=== PATIENT | female | born 1940 | race Caucasian/White ===

== ENCOUNTER → 2016-10-06 | Outpatient (CLI) | payer OTHER ==
[~2016-10-06] MED LIST: AMARYL PO; ASPIRIN81 M2 PO; CALTRATE 600 W-1 TAB PO; GLYNASE PO; LISINOPRIL10 MG PO; LISINOPRIL5 MG PO; LOPID600 MG PO; LOPRESSOR PO; LOPRESSOR100 MG PO; METFORMIN HCL500 M1 PO; MICRONASE5 M1 PO; MULTI VITAMIN1 EACH PO; TUSSIONEX PENN473 ML PO; VICODIN 5/1 TAB 5/50 PO; VITAMIN D1000 UNIT PO; VITAMIN D400 UNI2 PO; ZITHROMAX PO
--- NOTE | ~2016-10-06 | MY29 ---
[facility] A Service of [facility] RADIOLOGY TEXT RESULTS PATIENT: TWAN ACKERMAN LOCATION: [facility] : 42 UNIT #: [id number] AGE: [address]: Julito Saunders MD SEX: F ORDER DR: [id number] [facility] [address] [place], [place] [address] [id number] MR#: [id number] Acc #: [id number] NAME: TWAN ACKERMAN : 1940 SEX: F STUDY DATE/TIME: 10/06/2016 10:33 UNIT: [facility] ROOM: STUDY DESCRIPTION: MY JO SCREENING W/ CAD BILAT Attending Physician: Julito Saunders M.D. Referring Physician: Julito Saunders M.D. Ordering Physician: Julito Saunders M.D. Primary Care Physician: Julito Saunders M.D. MEDICAL IMAGING REPORT This report is preliminary unless electronic signature is present EXAM Digital screening mammogram, 10/06/2016 HISTORY 76-year-old woman no risk elevation. Interim weight loss. Annual screening. COMPARISON Mammograms date to 10/08/2006 with most recent 05/22/2015. FINDINGS Digital imaging of each breast was completed utilizing screening protocol. Review includes FDA-approved CAD device. Breast parenchyma is partially fatty replaced. Mild parenchymal dominance projects in the upper outer quadrant of the right breast. Secretory calcifications are noted in each breast. I see no interval occurring mass. There are no suspicious microcalcifications and no architectural deformity. IMPRESSION Benign mammogram. Annual screening recommended. Patients over the age of 40 are entered into a reminder system with target due date for the next mammogram. A result letter will also be sent to the patient. BIRADS: 2 Benign Finding Dictated by... Cholo Pack M.D. THIS IS AN ELECTRONICALLY VERIFIED REPORT Cholo Pack M.D. at 10/06/2016 3:53 PM STEPHANIE/bonny [facility] A Service of [facility] RADIOLOGY TEXT RESULTS PATIENT: TWAN ACKERMAN LOCATION: [facility] : 42 UNIT #: [id number] AGE: [address]: Julito Saunders MD SEX: F ORDER DR: TD: 10/06/2016 15:42 JOB #: [id number] MEDICAL IMAGING REPORT Page 1 of 1 COPY
== END | disposition home or self-care (01) ==
LOC: CWCC 10:11
DX: Z12.31 Encounter for screening mammogram for malignant neoplasm of breast (principal)
CPT/HCPCS: G0202